=== PATIENT | male | born 1990 | race African-American/Black ===

== ENCOUNTER 2018-04-22 18:02 | Emergency (ER) | payer SELFPAY ==
[~2018-04-22] VITALS: Ht 177.8 cm; Wt 68.0 kg
[2018-04-22] MEDS ORDERED: LIDOCAINE HCL/PF 1% 2ML VIAL INFIL ONE (20:15)
[2018-04-22] MEDS ORDERED: KETOROLAC 30MG/ML VIAL IM ONE (20:15)
[2018-04-22] MEDS ORDERED: LIDOCAINE HCL 1% 20ML VIAL (Pyxis) INJ INFIL ONE (20:30)
[2018-04-22] MEDS ORDERED: TETANUS, DIPHTHERIA, PERTUSSIS VAC/PF 0.5ML (>7YR OLD) IM ONE (21:45)
[2018-04-22] MEDS ORDERED: BACITRACIN ZINC OINT UDPKT TOP ONE (22:00)
[2018-04-22 22:15] VITALS: BP 138/82
== END 2018-04-22 22:36 | disposition home or self-care (01) ==
LOC: ER 18:03
DX: S61.011A Laceration without foreign body of right thumb without damage to nail, initial encounter (principal); F12.10 Cannabis abuse, uncomplicated; V49.88XA Car occupant (driver) (passenger) injured in other specified transport accidents, initial encounter; Y93.89 Activity, other specified; Y92.89 Other specified places as the place of occurrence of the external cause; Y99.8 Other external cause status
CPT/HCPCS: 73140; 90471; 90715; 96372; 99283; J1885; J3490

== ENCOUNTER 2018-04-22 23:55 | Emergency (ER) | payer SELFPAY ==
[~2018-04-22] VITALS: Ht 182.9 cm; Wt 70.9 kg
[2018-04-23 00:31] VITALS: BP 119/79
== END 2018-04-23 04:53 | disposition left against medical advice (07) ==
LOC: ER 23:55
DX: Z53.21 Procedure and treatment not carried out due to patient leaving prior to being seen by health care provider (principal)

== ENCOUNTER 2018-05-06 15:05 | Emergency (ER) | payer SELFPAY | END 2018-05-06 19:02 | disposition left against medical advice (07) | LOC: ER 15:05 | DX: Z53.21 Procedure and treatment not carried out due to patient leaving prior to being seen by health care provider (principal) ==